=== PATIENT | female | born 1985 | race Caucasian/White ===

== ENCOUNTER 2017-03-30 03:52 | Emergency (ER) | payer OTHER ==
[~2017-03-30] VITALS: Ht 167.6 cm; Wt 77.1 kg
[2017-03-30 04:12] LABS: URINE BILIRUBIN NEGATIVE (Negative); URINE BLOOD 3+ (Negative); URINE COLOR YELLOW; URINE GLUCOSE-RANDOM* NEGATIVE (Negative); URINE KETONES NEGATIVE (Negative); URINE PROTEIN (DIPSTICK) NEGATIVE (Negative); URINE SPECIFIC GRAVITY 1.015 (1.005-1.035); URINE UROBILINOGEN 0.2 E.U./dl (0.2-1.0)
[2017-03-30 04:15] LABS: URINE LEUKOCYTES-REFLEX 1+ (Negative)
[2017-03-30 04:18] LABS: CASTS None Seen /LPF (None Seen); SQUAMOUS 0-3 Few /LPF (0-3); URINE WBC-REFLEX 0-5 Rare /HPF (0-5)
[2017-03-30 04:19] LABS: CRYSTALS None Seen /LPF (None Seen); URINE RBC 3-10 Few /HPF (0-2)
[2017-03-30] MEDS ORDERED: NOHOMEMEDICATIONS (04:20)
[2017-03-30] MEDS ORDERED: PYRIDIUM200 MG PO ×2 (04:23→04:25)
[2017-03-30] MEDS ORDERED: ZOFRAN ODT4 MG PO (04:23)
[2017-03-30] MEDS ORDERED: BACTRIM DS TAB1 EACH PO ×2 (04:23→04:25)
[2017-03-30 04:54] VITALS: BP 131/81
== END 2017-03-30 15:15 | disposition home or self-care (01) ==
LOC: ER 03:52
PROVIDERS: Emergency Medicine
DX: N39.0 Urinary tract infection, site not specified (principal)

== ENCOUNTER 2019-03-16 19:05 | Emergency (ER) | payer OTHER ==
[~2019-03-16] VITALS: Ht 165.1 cm; Wt 81.7 kg
[~2019-03-16 19:05] MED LIST: BACTRIM DS TAB1 EACH PO; NOHOMEMEDICATIONS; PYRIDIUM200 MG PO; ZOFRAN ODT4 MG PO
[2019-03-16 19:29] LABS: URINE BILIRUBIN NEGATIVE (Negative); URINE BLOOD 3+ (Negative); URINE CLARITY CLEAR; URINE COLOR YELLOW; URINE GLUCOSE-RANDOM* NEGATIVE (Negative); URINE KETONES 1+ (Negative); URINE PROTEIN (DIPSTICK) 2+ (Negative)
[2019-03-16 19:30] LABS: URINE LEUKOCYTES-REFLEX 2+ (Negative); URINE NITRITE-REFLEX POSITIVE (Negative)
[2019-03-16 19:40] LABS: CASTS None Seen /LPF (None Seen); CRYSTALS None Seen /LPF (None Seen); SQUAMOUS 0-3 Few /LPF (0-3); URINE RBC >20 Many /HPF (0-2); URINE WBC-REFLEX 0-5 Rare /HPF (0-5)
[2019-03-16 21:03] LABS: HEMATOCRIT 44.7 % (37.0-47.0); HEMOGLOBIN 15.2 gm/dL (12.0-15.0); MCH 31.3 pg (26.0-34.0); MCV 92.1 fL (80.0-100.0); PLATELET COUNT 470 thou/uL (150-400); RBC 4.85 mil/uL (4.20-5.00); WBC 16.2 thou/uL (4.0-11.0)
[2019-03-16 21:17] LABS: CALCIUM 9.3 mg/dL (8.5-10.1); CREATININE 1.4 mg/dL (0.6-1.0); POTASSIUM 3.4 mmol/L (3.5-5.1)
[2019-03-16 21:21] LABS: ALBUMIN 3.7 g/dL (3.4-5.0); DIRECT BILIRUBIN 0.2 mg/dL (<0.1-0.3); TOTAL BILIRUBIN 0.4 mg/dL (<0.1-1.0); TOTAL PROTEIN 7.7 g/dL (6.4-8.2)
[2019-03-16 21:46] LABS: ABSOLUTE NEUTROPHILS 12.6 thou/uL (1.4-8.2); PLATELET ESTIMATE INCREASED
[2019-03-16] MEDS ORDERED: NORCO 5-325 TA1 EAC1 PO (22:06)
[2019-03-16] MEDS ORDERED: ZOFRAN ODT4 MG PO (22:06)
[2019-03-16] MEDS ORDERED: FLOMAX0.4 MG PO (22:06)
[2019-03-16] MEDS ORDERED: KEFLEX500 M1 PO (22:06)
[2019-03-16 23:26] VITALS: BP 155/92
== END 2019-03-16 23:22 | disposition home or self-care (01) ==
LOC: ER 19:05
PROVIDERS: Emergency Medicine; Physician Assistant
DX: N20.0 Calculus of kidney (principal); N39.0 Urinary tract infection, site not specified; R11.2 Nausea with vomiting, unspecified; Z87.442 Personal history of urinary calculi

== ENCOUNTER 2019-05-02 17:32 | Emergency (ER) | payer OTHER ==
[~2019-05-02] VITALS: Ht 167.6 cm; Wt 81.7 kg
[~2019-05-02 17:32] MED LIST changes: +FLOMAX0.4 MG PO; +KEFLEX500 M1 PO; +NORCO 5-325 TA1 EAC1 PO
[2019-05-02 17:39] VITALS: BP 163/111
[2019-05-02] MEDS ORDERED: DOXYCYCLINE 10100 MG PO (17:56)
== END 2019-05-02 18:27 | disposition home or self-care (01) ==
LOC: ER 17:32
DX: L02.213 Cutaneous abscess of chest wall (principal); Z87.442 Personal history of urinary calculi

== ENCOUNTER 2019-05-07 08:52 | Emergency (ER) | payer OTHER ==
[~2019-05-07] VITALS: Ht 172.7 cm; Wt 93.4 kg
[~2019-05-07 08:52] MED LIST changes: +DOXYCYCLINE 10100 MG PO
[2019-05-07] MEDS ORDERED: NAPROSYN500 MG PO (09:58)
[2019-05-07] MEDS ORDERED: ZOFRAN ODT4 MG PO (09:58)
[2019-05-07 10:09] VITALS: BP 139/79
== END 2019-05-07 10:10 | disposition home or self-care (01) ==
LOC: ER 08:52
DX: L02.213 Cutaneous abscess of chest wall (principal); Z87.442 Personal history of urinary calculi

== ENCOUNTER 2019-11-23 22:41 | Emergency (ER) | payer OTHER ==
[~2019-11-23] VITALS: Ht 167.6 cm; Wt 90.7 kg
[~2019-11-23 22:41] MED LIST changes: +NAPROSYN500 MG PO
[2019-11-24 01:25] LABS: URINE BILIRUBIN 1+ (Negative); URINE BLOOD TRACE (Negative); URINE CLARITY CLEAR; URINE COLOR YELLOW; URINE GLUCOSE-RANDOM* NEGATIVE (Negative); URINE KETONES TRACE (Negative); URINE NITRITE-REFLEX NEGATIVE (Negative); URINE PROTEIN (DIPSTICK) 2+ (Negative); URINE SPECIFIC GRAVITY 1.015 (1.005-1.035); URINE UROBILINOGEN 0.2 E.U./dl (0.2-1.0)
[2019-11-24 01:36] LABS: URINE LEUKOCYTES-REFLEX 1+ (Negative)
[2019-11-24 01:37] LABS: CASTS None Seen /LPF (None Seen); CRYSTALS None Seen /LPF (None Seen); MUCUS 0-3 Light strn/LPF (None Seen); SQUAMOUS >10 Many /LPF (0-3); URINE RBC None Seen /HPF (0-2); URINE WBC-REFLEX 0-5 Rare /HPF (0-5)
[2019-11-24 01:38] LABS: ICTOTEST (BILI CONFIRMATORY) Positive (Negative)
[2019-11-24 01:49] LABS: CREATININE 0.9 mg/dL (0.6-1.0)
[2019-11-24 01:54] LABS: ALBUMIN 4.2 g/dL (3.4-5.0); TOTAL BILIRUBIN 0.5 mg/dL (0.2-1.0); TOTAL PROTEIN 8.2 g/dL (6.4-8.2)
[2019-11-24] MEDS ORDERED: ZOFRAN ODT4 MG PO (05:56)
[2019-11-24] MEDS ORDERED: PHENERGAN 25 MG25 M1 PO (05:56)
[2019-11-24] MEDS ORDERED: PROMS25 WY RECTAL (05:56)
[2019-11-24] MEDS ORDERED: BENTYL 20 MG TA20 M1 PO (05:56)
[2019-11-24] MEDS ORDERED: PEPCID40 MG PO (05:57)
[2019-11-24 06:11] VITALS: BP 168/100
== END 2019-11-24 06:12 | disposition home or self-care (01) ==
LOC: ER 22:41
PROVIDERS: Emergency Medicine
DX: R11.2 Nausea with vomiting, unspecified (principal); R10.13 Epigastric pain; Z87.442 Personal history of urinary calculi

== ENCOUNTER 2020-05-01 14:28 | Emergency (ER) | payer OTHER ==
[~2020-05-01] VITALS: Ht 167.6 cm; Wt 79.4 kg
[~2020-05-01 14:28] MED LIST changes: +BENTYL 20 MG TA20 M1 PO; +PEPCID40 MG PO; +PHENERGAN 25 MG25 M1 PO; +PROMS25 WY RECTAL
[2020-05-01] MEDS ORDERED: ULTRAM 50MG TAB50 MG PO (15:31)
[2020-05-01 16:45] VITALS: BP 147/75
== END 2020-05-01 16:10 | disposition home or self-care (01) ==
LOC: ER 14:28
DX: M79.672 Pain in left foot (principal); M79.89 Other specified soft tissue disorders; Z87.442 Personal history of urinary calculi; W18.49XA Other slipping, tripping and stumbling without falling, initial encounter; Y93.01 Activity, walking, marching and hiking; Y92.89 Other specified places as the place of occurrence of the external cause; Y99.8 Other external cause status